=== PATIENT | female | born 1955 | race Caucasian/White ===

== ENCOUNTER 2022-01-17 17:05 | Inpatient (IN) | payer MEDICARE, MEDICAID ==
[~2022-01-17] VITALS: Ht 157.5 cm; Wt 40.0 kg
[2022-01-17] MEDS ORDERED: normal saline 1000ML IV soln IVB ONE ×2 (19:00→20:15)
[2022-01-17 19:32] LABS: BASOPHILS % (AUTO) 0.1 % (0-1); EOSINOPHILS % (AUTO) 0.2 % (0-6); HEMATOCRIT 29.6 % (35.0-45.0); HEMOGLOBIN 9.8 g/dl (12.0-16.0); LYMPHOCYTES # (AUTO) 0.7 X10'3 (1.1-4.8); LYMPHOCYTES % (AUTO) 7.9 % (21-51); MEAN CORPUSCULAR VOLUME 96.9 FL (78-98); MEAN PLATELET VOLUME 8.3 FL (7.4-10.4); MONOCYTES # (AUTO) 0.4 X10'3 (0-0.9); MONOCYTES % (AUTO) 4.3 % (2-12); NEUTROPHILS # (AUTO) 7.5 X10'3 (1.8-7.7); NEUTROPHILS % (AUTO) 87.5 % (42-75); PLATELET COUNT 253 X10'3 (140-440); RED BLOOD COUNT 3.05 X10'6 (4.20-5.60); RED CELL DISTRIBUTION WIDTH 13.1 % (11.5-14.5); WHITE BLOOD COUNT 8.6 X10'3 (4.5-11.0)
[2022-01-17 21:02] LABS: ALANINE AMINOTRANSFERASE 50 U/L (12-78); ALBUMIN/GLOBULIN RATIO 0.5 (1.1-1.5); ALKALINE PHOSPHATASE 100 IU/L (46-116); ASPARTATE AMINO TRANSFERASE 64 U/L (10-37); BILIRUBIN,TOTAL 0.2 MG/DL (0.1-1.0); BLOOD UREA NITROGEN 45 MG/DL (7-18); BUN/CREATININE RATIO 37.2 (6.6-38.0); CALCIUM 9.1 MG/DL (8.5-10.1); CREATININE 1.21 MG/DL (0.40-0.90); GLUCOSE 107 MG/DL (70-104); POTASSIUM 3.6 MMOL/L (3.5-5.1); TOTAL CARBON DIOXIDE 26.6 MMOL/L (24-32); eGFR 44 ML/MIN
[2022-01-17 21:10] LABS: ANION GAP 10 (8-16); CHLORIDE 125 MMOL/L (99-107)
[2022-01-17 21:11] LABS: SODIUM 162 MMOL/L (135-145)
[2022-01-17 21:38] LABS: CLARITY,URINE SLIGHTLY CLOUDY (Clear); COLOR,URINE YELLOW (Yellow); GLUCOSE, URINE NEGATIVE (Neg); KETONES,URINE NEGATIVE (Neg); LEUKOCYTE ESTERASE ,URINE NEGATIVE (Neg); NITRITES, URINE NEGATIVE (Neg); OCCULT BLOOD,URINE NEGATIVE (Neg); PROTEIN,URINE TRACE mg/dl (Neg); UROBILINOGEN,URINE 0.2 E.U/dL (0.2-1.0)
[2022-01-17 21:48] LABS: UA COLLECTION TYPE STRAIGHT CATH
[2022-01-17 21:51] LABS: BACTERIA,URINE FEW /HPF (Neg); MUCUS STRANDS FEW /LPF (Neg); RBC,URINE 0-2 /HPF (0-2); SQUAMOUS EPITHELIAL CELL,UR FEW /LPF (FEW); WBC,URINE NONE SEEN /HPF (0-4)
--- NOTE | 2022-01-17 22:04 | NUR ---
CHANGED DRESSINGS ON WOUNDS TO COCCYX AND HIPS.
[2022-01-17] MEDS ORDERED: acetaminophen 650mg rectal suppository RC PRN (22:05)
[2022-01-17] MEDS ORDERED: ondansetron/PF 4mg/2ml inj IV PRN (22:05)
[2022-01-17] MEDS: dextrose 5%-1/2 normal saline 1,000 ML IV SCH (23:51)
[2022-01-18 01:05] VITALS: BP 99/52
--- NOTE | 2022-01-18 01:05 | NUR ---
PATIENT ADMITTED TO ROOM 4017 FROM ER FOR HYPONATREMIA, AND DEMENTIA. PLACED COMFORTABLY IN BED. VITAL SIGNS TAKEN AND RECORDED.
--- NOTE | 2022-01-18 02:00 | NUR ---
PATIENT'S DRESSING TO WOUNDS THAT WERE DONE BY ER ARE PEELING OFF. DRESSING CHANGED WITH HYDROPHYLIC FOAM DRESSING TO EACH WOUND AND WOUND CARE CONSULT IS ORDERED.
[2022-01-18 06:00] VITALS: BP 91/60
--- NOTE | 2022-01-18 06:30 | NUR ---
Problems reprioritized. Patient report given, questions answered & plan of care reviewed with YENIFER CHAPPELL.
[2022-01-18 07:32] LABS: BASOPHILS % (AUTO) 0.1 % (0-1); EOSINOPHILS % (AUTO) 0.1 % (0-6); HEMATOCRIT 31.1 % (35.0-45.0); HEMOGLOBIN 10.4 g/dl (12.0-16.0); LYMPHOCYTES # (AUTO) 0.8 X10'3 (1.1-4.8); LYMPHOCYTES % (AUTO) 8.6 % (21-51); MEAN CORPUSCULAR HEMOGLOBIN 32.1 PG (27.0-31.0); MEAN CORPUSCULAR HGB CONC 33.3 g/dL (33.0-36.5); MEAN CORPUSCULAR VOLUME 96.4 FL (78-98); MEAN PLATELET VOLUME 8.3 FL (7.4-10.4); MONOCYTES # (AUTO) 0.4 X10'3 (0-0.9); MONOCYTES % (AUTO) 3.9 % (2-12); NEUTROPHILS # (AUTO) 8.1 X10'3 (1.8-7.7); NEUTROPHILS % (AUTO) 87.3 % (42-75); PLATELET COUNT 281 X10'3 (140-440); RED BLOOD COUNT 3.23 X10'6 (4.20-5.60); RED CELL DISTRIBUTION WIDTH 12.8 % (11.5-14.5); WHITE BLOOD COUNT 9.2 X10'3 (4.5-11.0)
[2022-01-18 07:49] LABS: ALANINE AMINOTRANSFERASE 56 U/L (12-78); ALBUMIN 1.8 G/DL (3.4-5.0); ALBUMIN/GLOBULIN RATIO 0.5 (1.1-1.5); ALKALINE PHOSPHATASE 89 IU/L (46-116); ANION GAP 7 (8-16); ASPARTATE AMINO TRANSFERASE 67 U/L (10-37); BILIRUBIN,TOTAL 0.2 MG/DL (0.1-1.0); BLOOD UREA NITROGEN 37 MG/DL (7-18); BUN/CREATININE RATIO 37.4 (6.6-38.0); CALCIUM 8.5 MG/DL (8.5-10.1); CHLORIDE 129 MMOL/L (99-107); CREATININE 0.99 MG/DL (0.40-0.90); GLUCOSE 129 MG/DL (70-104); TOTAL CARBON DIOXIDE 25.6 MMOL/L (24-32); TOTAL PROTEIN 5.3 G/DL (6.4-8.2); eGFR 56 ML/MIN
[2022-01-18 07:52] LABS: SODIUM 162 MMOL/L (135-145)
--- NOTE | 2022-01-18 07:54 | NUR ---
Noted pt with a low BMI of 16.1 using documented wt of 40 kg however wt is not scaled and no scaled wt hx in EMR. Unable to obtain information from pt as per EMR pt is nonverbal and A/O x 1. Pt with a low Guero of 11. Wound care has been consulted for multiple large pressure wounds to bottom with maggots, assessment pending at this time. Pt currently NPO though receiving D5 1/2 NS at 100 mL/hr providing 408 kcal/day. LBM 01/17. No nutrition intervention to be implemented d/t NPO and DNR with comfort care code status. Will continue to follow per LOS. Recommendations: 1) Bowel care per comfort care measures Addendum: 01/18/22 at [address] Amended: Links added.
[2022-01-18] MEDS ORDERED: POTASSIUM BICARB 20meq eff tab 20 MEQ TABLET.EFF PO PRN ×2 (08:25)
[2022-01-18] MEDS ORDERED: magnesium Cl slow-release 64mg tablet PO PRN (08:25)
[2022-01-18] MEDS ORDERED: magnesium 4gm in 100ml NS 100 ML IV PRN (08:25)
[2022-01-18] MEDS ORDERED: magnesium 2GM in 50ml NS 50 ML IV PRN (08:25)
[2022-01-18] MEDS: morphine 2 MG/ML inj. syringe IV PRN (09:59)
[2022-01-18] MEDS: dextrose 5%-1/2 normal saline 1,000 ML IV SCH ×2 (10:30→19:23)
--- NOTE | 2022-01-18 11:19 | NUR ---
Dr. Sandoval aware of the Na high 162 and K 2.9. I asked her if she wants any replacement and that patient is on comfort care . She said she would speak to the daughter first. I told Dr. Sandoval that daughter currently at bedside.
--- NOTE | 2022-01-18 12:18 | NUR ---
Paged ST for swallow eval of this patient
[2022-01-18] MEDS ORDERED: CLOP75TA15 PO (14:05)
[2022-01-18] MEDS ORDERED: BENA20TA83 PO (14:05)
[2022-01-18] MEDS ORDERED: QUET50TA PO (14:05)
[2022-01-18] MEDS ORDERED: DEXL30CA3 PO (14:05)
[2022-01-18 18:00] VITALS: BP 99/45
--- NOTE | 2022-01-18 18:30 | NUR ---
Patient in room [facility]TH[facility] 4017. I have received report from YENIFER CHAPPELL and had the opportunity to ask questions and assume patient care.
[2022-01-18] MEDS: potassium CL 10mEq/100ml bag 100 ML IV PRN ×3 (19:14→23:42)
[2022-01-18] MEDS: K and/or MAG REPLACEMENT MC SCH (19:28)
[2022-01-18 22:00] VITALS: BP 95/51
--- NOTE | 2022-01-19 00:15 | NUR ---
I went to call Ilya Valdez regarding the specialty bed of Advanta 2 P500 mattress for patient and it is already ordered per the inside account representative I talked to. The reference number is [id number].
[2022-01-19] MEDS: potassium CL 10mEq/100ml bag 100 ML IV PRN ×5 (01:50→21:56)
[2022-01-19] MEDS: dextrose 5%-1/2 normal saline 1,000 ML IV SCH ×2 (02:14→10:57)
[2022-01-19 05:45] LABS: POTASSIUM 2.9 MMOL/L (3.5-5.1)
[2022-01-19 06:00] VITALS: BP 101/42
--- NOTE | 2022-01-19 06:30 | NUR ---
Problems reprioritized. Patient report given, questions answered & plan of care reviewed with BRIA CHAPPELL.
--- NOTE | 2022-01-19 07:21 | NUR ---
Patient in room [facility]TH[facility] 4017. I have received report from TA Ruano and had the opportunity to ask questions and assume patient care.
[2022-01-19 07:41] LABS: BASOPHILS % (AUTO) 0.1 % (0-1); EOSINOPHILS # (AUTO) 0.1 X10'3 (0-0.9); EOSINOPHILS % (AUTO) 0.8 % (0-6); HEMOGLOBIN 9.9 g/dl (12.0-16.0); LYMPHOCYTES # (AUTO) 0.9 X10'3 (1.1-4.8); LYMPHOCYTES % (AUTO) 10.3 % (21-51); MEAN CORPUSCULAR HEMOGLOBIN 31.8 PG (27.0-31.0); MEAN CORPUSCULAR VOLUME 96.2 FL (78-98); MEAN PLATELET VOLUME 8.8 FL (7.4-10.4); MONOCYTES # (AUTO) 0.4 X10'3 (0-0.9); MONOCYTES % (AUTO) 4.6 % (2-12); NEUTROPHILS % (AUTO) 84.2 % (42-75); PLATELET COUNT 228 X10'3 (140-440); RED BLOOD COUNT 3.12 X10'6 (4.20-5.60); RED CELL DISTRIBUTION WIDTH 12.8 % (11.5-14.5); WHITE BLOOD COUNT 8.3 X10'3 (4.5-11.0)
[2022-01-19 07:53] LABS: ALANINE AMINOTRANSFERASE 45 U/L (12-78); ALBUMIN 1.6 G/DL (3.4-5.0); ALBUMIN/GLOBULIN RATIO 0.4 (1.1-1.5); ALKALINE PHOSPHATASE 78 IU/L (46-116); ANION GAP 5 (8-16); ASPARTATE AMINO TRANSFERASE 44 U/L (10-37); BILIRUBIN,TOTAL 0.3 MG/DL (0.1-1.0); BLOOD UREA NITROGEN 21 MG/DL (7-18); BUN/CREATININE RATIO 26.3 (6.6-38.0); CALCIUM 8.5 MG/DL (8.5-10.1); CHLORIDE 123 MMOL/L (99-107); GLUCOSE 96 MG/DL (70-104); POTASSIUM 3.2 MMOL/L (3.5-5.1); SODIUM 154 MMOL/L (135-145); TOTAL CARBON DIOXIDE 26.5 MMOL/L (24-32); TOTAL PROTEIN 5.2 G/DL (6.4-8.2); eGFR 72 ML/MIN
[2022-01-19] MEDS: K and/or MAG REPLACEMENT MC SCH ×2 (08:00→21:56)
--- NOTE | 2022-01-19 08:12 | NUR ---
PAGER ID: [phone] MESSAGE: Ella [id number] room 4017 is Comfort Care but still has labs, replacements, wound care and fluids ordered. Would you like me to continue to treat her? Thank you.
--- NOTE | 2022-01-19 08:13 | NUR ---
The patient still has labs, replacements, wound care, and fluids ordered but she is on Comfort Care. Paged the MD to see if we should continue the treatment.
[2022-01-19] MEDS: NYSTATIN CREAM - 30GM TUBE TP SCH (08:37)
[2022-01-19] MEDS: morphine 2 MG/ML inj. syringe IV PRN ×3 (08:38→17:11)
--- NOTE | 2022-01-19 08:39 | NUR ---
Administered Morphine at 0838 but scanner was not working. All medication rights reviewed.
[2022-01-19 10:00] VITALS: BP 69/29
[2022-01-19] MEDS ORDERED: dextrose 5%-1/2 normal saline 1,000 ML IV ONE (10:30)
--- NOTE | 2022-01-19 11:54 | NUR ---
Malnutrition consult: Pt unsure of wt loss though with decreased appetite per malnutrition risk screen with RN. Unable to obtain information from pt as pt A/O x 1 with dementia and nonverbal per EMR. Pt seen at bedside, no family members present. Pt visually cachectic most notably at bilat temples, shoulders, and clavicles as the rest of patient's body was covered with a blanket. Pt with severe decrease in muscle strength per EMR. Per physician notes pt's condition has been declining since 2017 and pt is having FTT and unable to eat. Pt likely with suboptimal PO intake [place]. Pt currently meets criteria for severe malnutrition. Pt seen by wound care, per report pt with unstageable PU to sacrum, bilat ischium, bilat trochanter, a DTI with right medial heel, stage I PU to right iliac crest, and an abrasion to left knee and right ear. Pt s/p BSS this morning with ST recs pureed food with thin liquids and needs a feeder d/t cognitive level, pending first meal since diet advancement. LBM 01/18. No nutrition intervention implemented in view of DNR with comfort care status. Will continue to follow per LOS. Recommendations: 1) Bowel care per comfort care measures Addendum: 01/19/22 at [address] Amended: Links added.
--- NOTE | 2022-01-19 12:10 | NUR ---
Patient has been moved to her new specialty bed Advanta 2 Frame with P500 mattress.
--- NOTE | 2022-01-19 16:58 | NUR ---
All wound care has been completed during today's shift as prescribed.
[2022-01-19 18:00] VITALS: BP 82/61
--- NOTE | 2022-01-19 18:00 | NUR ---
Patient in room [facility]TH[facility] 4017. I have received report from TA Jaramillo and had the opportunity to ask questions and assume patient care.
--- NOTE | 2022-01-19 18:40 | NUR ---
Problems reprioritized. Patient report given, questions answered & plan of care reviewed with IJEOMA Garcia.
[2022-01-19 22:00] VITALS: BP 99/49
[2022-01-20] MEDS: dextrose 5%-1/2 normal saline 1,000 ML IV SCH ×3 (03:56→18:14)
[2022-01-20 06:29] LABS: BASOPHILS % (AUTO) 0.3 % (0-1); EOSINOPHILS % (AUTO) 0.5 % (0-6); HEMATOCRIT 30.3 % (35.0-45.0); HEMOGLOBIN 10.1 g/dl (12.0-16.0); LYMPHOCYTES # (AUTO) 0.5 X10'3 (1.1-4.8); LYMPHOCYTES % (AUTO) 5.9 % (21-51); MEAN CORPUSCULAR HEMOGLOBIN 31.6 PG (27.0-31.0); MEAN CORPUSCULAR HGB CONC 33.3 g/dL (33.0-36.5); MEAN PLATELET VOLUME 9.3 FL (7.4-10.4); MONOCYTES # (AUTO) 0.2 X10'3 (0-0.9); MONOCYTES % (AUTO) 2.3 % (2-12); NEUTROPHILS # (AUTO) 8.2 X10'3 (1.8-7.7); PLATELET COUNT 228 X10'3 (140-440); RED BLOOD COUNT 3.19 X10'6 (4.20-5.60); RED CELL DISTRIBUTION WIDTH 12.5 % (11.5-14.5)
--- NOTE | 2022-01-20 06:29 | NUR ---
Problems reprioritized. Patient report given, questions answered & plan of care reviewed with TA Jaramillo.
--- NOTE | 2022-01-20 06:36 | NUR ---
Patient in room [facility]TH[facility] 4017. I have received report from IJEOMA Garcia and had the opportunity to ask questions and assume patient care.
--- NOTE | 2022-01-20 06:48 | NUR ---
I have reviewed and agree with this assmt done by Radha RAPHAEL
[2022-01-20 06:58] LABS: ALANINE AMINOTRANSFERASE 41 U/L (12-78); ALBUMIN 1.6 G/DL (3.4-5.0); ALBUMIN/GLOBULIN RATIO 0.5 (1.1-1.5); ALKALINE PHOSPHATASE 96 IU/L (46-116); ANION GAP 4 (8-16); ASPARTATE AMINO TRANSFERASE 39 U/L (10-37); BILIRUBIN,TOTAL 0.4 MG/DL (0.1-1.0); BLOOD UREA NITROGEN 16 MG/DL (7-18); BUN/CREATININE RATIO 22.2 (6.6-38.0); CALCIUM 8.3 MG/DL (8.5-10.1); CHLORIDE 117 MMOL/L (99-107); CREATININE 0.72 MG/DL (0.40-0.90); GLUCOSE 92 MG/DL (70-104); POTASSIUM 3.3 MMOL/L (3.5-5.1); SODIUM 147 MMOL/L (135-145); TOTAL PROTEIN 4.9 G/DL (6.4-8.2); eGFR 81 ML/MIN
[2022-01-20] MEDS: K and/or MAG REPLACEMENT MC SCH ×2 (08:00→20:00)
[2022-01-20] MEDS: NYSTATIN CREAM - 30GM TUBE TP SCH (09:16)
[2022-01-20 10:00] VITALS: BP 120/58
[2022-01-20] MEDS: cephalexin 500mg capsule PO SCH ×2 (14:00→20:00)
--- NOTE | 2022-01-20 16:58 | NUR ---
All wound care has been provided during today's shift as prescribed.
--- NOTE | 2022-01-20 18:00 | NUR ---
Patient in room [facility]TH[facility] 4017. I have received report from TA Jaramillo and had the opportunity to ask questions and assume patient care.
--- NOTE | 2022-01-20 18:34 | NUR ---
Problems reprioritized. Patient report given, questions answered & plan of care reviewed with IJEOMA Garcia.
--- NOTE | 2022-01-20 20:44 | NUR ---
Patient is on comfort care. Informed patient of her potassium level of 3.3. Patient refused her medications this evening.
[2022-01-20] MEDS ORDERED: QUEtiapine 25mg tablet PO SCH (21:00)
[2022-01-20] MEDS: morphine 2 MG/ML inj. syringe IV PRN (21:18)
[2022-01-20 22:00] VITALS: BP 75/29
[2022-01-21] MEDS: cephalexin 500mg capsule PO SCH ×3 (02:00→13:04)
[2022-01-21] MEDS: dextrose 5%-1/2 normal saline 1,000 ML IV SCH ×2 (02:15→14:31)
[2022-01-21] MEDS: morphine 2 MG/ML inj. syringe IV PRN ×3 (04:22→13:04)
--- NOTE | 2022-01-21 05:38 | NUR ---
AGREE WITH CHEMICAL COMPOUNDER PHYSICAL ASSESSMENT CHARTED
[2022-01-21 06:00] VITALS: BP 124/76
[2022-01-21 06:11] LABS: BASOPHILS % (AUTO) 0.1 % (0-1); EOSINOPHILS # (AUTO) 0.1 X10'3 (0-0.9); EOSINOPHILS % (AUTO) 1.2 % (0-6); HEMATOCRIT 27.6 % (35.0-45.0); HEMOGLOBIN 9.3 g/dl (12.0-16.0); LYMPHOCYTES # (AUTO) 0.5 X10'3 (1.1-4.8); LYMPHOCYTES % (AUTO) 7.2 % (21-51); MEAN CORPUSCULAR HEMOGLOBIN 31.8 PG (27.0-31.0); MEAN CORPUSCULAR HGB CONC 33.8 g/dL (33.0-36.5); MEAN CORPUSCULAR VOLUME 94.2 FL (78-98); MEAN PLATELET VOLUME 9.3 FL (7.4-10.4); MONOCYTES # (AUTO) 0.3 X10'3 (0-0.9); MONOCYTES % (AUTO) 3.9 % (2-12); NEUTROPHILS # (AUTO) 6.3 X10'3 (1.8-7.7); NEUTROPHILS % (AUTO) 87.6 % (42-75); PLATELET COUNT 193 X10'3 (140-440); RED BLOOD COUNT 2.93 X10'6 (4.20-5.60); RED CELL DISTRIBUTION WIDTH 12.6 % (11.5-14.5); WHITE BLOOD COUNT 7.1 X10'3 (4.5-11.0)
--- NOTE | 2022-01-21 06:21 | NUR ---
Problems reprioritized. Patient report given, questions answered & plan of care reviewed with TA Parks.
--- NOTE | 2022-01-21 06:26 | NUR ---
Patient in room [facility]TH[facility] 4017. I have received report from IVÁN and had the opportunity to ask questions and assume patient care.
[2022-01-21 06:28] LABS: ALANINE AMINOTRANSFERASE 61 U/L (12-78); ALBUMIN 1.3 G/DL (3.4-5.0); ALBUMIN/GLOBULIN RATIO 0.4 (1.1-1.5); ALKALINE PHOSPHATASE 129 IU/L (46-116); ANION GAP 3 (8-16); ASPARTATE AMINO TRANSFERASE 56 U/L (10-37); BILIRUBIN,TOTAL 0.4 MG/DL (0.1-1.0); BLOOD UREA NITROGEN 10 MG/DL (7-18); BUN/CREATININE RATIO 17.9 (6.6-38.0); CALCIUM 7.9 MG/DL (8.5-10.1); CHLORIDE 112 MMOL/L (99-107); CREATININE 0.56 MG/DL (0.40-0.90); GLUCOSE 108 MG/DL (70-104); SODIUM 142 MMOL/L (135-145); TOTAL CARBON DIOXIDE 26.6 MMOL/L (24-32); TOTAL PROTEIN 4.6 G/DL (6.4-8.2); eGFR > 90 ML/MIN
[2022-01-21 06:59] LABS: POTASSIUM 2.8 MMOL/L (3.5-5.1)
[2022-01-21] MEDS ORDERED: potassium Cl 20 mEq SR tablet PO PRN (07:30)
--- NOTE | 2022-01-21 07:48 | NUR ---
PAGED DR MORIN ABOUT K OF 2.8. PAGE SAID WAS SENT
[2022-01-21] MEDS: K and/or MAG REPLACEMENT MC SCH (08:00)
[2022-01-21] MEDS ORDERED: pantoprazole 40mg Tablet.DR PO SCH (08:00)
[2022-01-21] MEDS: potassium Cl 20 mEq SR tablet PO PRN ×2 (08:26→12:08)
[2022-01-21] MEDS: NYSTATIN CREAM - 30GM TUBE TP SCH (08:28)
[2022-01-21 10:00] VITALS: BP 78/40
--- NOTE | 2022-01-21 10:00 | NUR ---
dr blood was notified about pt low BP, she wants to monitor it.
--- NOTE | 2022-01-21 11:35 | NUR ---
TALKED TO DR MORIN ABOUT GIVING PT ROXANOL FOR COMFORT CARE MEASURES BECAUSE PT SEEMS TO NOT BE COMFORTABLE, GRIMACING, GRABBING, SHE STATED SHE NEEDS TO TALK TO FAMILY TO SEE IF THEY WANT TO PUT THE PT ON HOSPICE. TO KEEP SAME MEDS THAT ARE BEING GIVEN
--- NOTE | 2022-01-21 13:21 | NUR ---
Page Sent promotional table spacer PAGER ID: [phone] MESSAGE: 16 AYDIN BRICE FAMILY IS HERE AND WILL BE FOR THE NEXT 30 MINUTES. THEY REALLY WANT TO TALK TO YOU. THANKS ELIZABETH [phone]
--- NOTE | 2022-01-21 14:28 | NUR ---
pt is comfort care/hospice. family only wants pt to be turned every 2 hrs and nothing to extensive due to her pain. they refused having the pictures taken and just want her to have bandages that fall off replaced. no extra movement due to her grimacing when doing so. just want her to be very comfortable.
[2022-01-21] MEDS ORDERED: morphine ORAL 5MG/0.25 ML (Conc. morphine) oral syringe PO PRN (16:15)
[2022-01-21] MEDS: scopolamine 1mg/72 hr patch TD SCH (18:27)
[2022-01-21] MEDS: morphine 10 MG/5 ML UD oral solution PO PRN (18:29)
--- NOTE | 2022-01-21 18:34 | NUR ---
DR MORIN PUT PT ON COMFORT CARE/ PALLIATIVE AND TOOK OFF K ORDERS.
--- NOTE | 2022-01-21 18:40 | NUR ---
Problems reprioritized. Patient report given, questions answered & plan of care reviewed with IVÁN RAPHAEL.
[2022-01-21] MEDS: LORazepam 2 mg/ml vial IV PRN (19:28)
[2022-01-21 22:00] VITALS: BP 79/29
--- NOTE | 2022-01-21 23:22 | NUR ---
Patient in room [facility]TH[facility] 4017. I have received report from TA Parks and had the opportunity to ask questions and assume patient care. Addendum: 01/21/22 at 2324 by Radha Ruelas LVN *Correction*received report at 1800.
--- NOTE | 2022-01-22 02:46 | NUR ---
AGREE WITH GYPSUM BLOCK SETTER PHYSICAL ASSESSMENT CHARTED
[2022-01-22 06:08] LABS: BASOPHILS % (AUTO) 0.3 % (0-1); EOSINOPHILS % (AUTO) 0.4 % (0-6); HEMATOCRIT 27.3 % (35.0-45.0); HEMOGLOBIN 9.2 g/dl (12.0-16.0); LYMPHOCYTES # (AUTO) 0.5 X10'3 (1.1-4.8); LYMPHOCYTES % (AUTO) 6.8 % (21-51); MEAN CORPUSCULAR HEMOGLOBIN 31.4 PG (27.0-31.0); MEAN CORPUSCULAR HGB CONC 33.6 g/dL (33.0-36.5); MEAN CORPUSCULAR VOLUME 93.4 FL (78-98); MEAN PLATELET VOLUME 9.4 FL (7.4-10.4); MONOCYTES # (AUTO) 0.3 X10'3 (0-0.9); MONOCYTES % (AUTO) 4.5 % (2-12); NEUTROPHILS # (AUTO) 6.5 X10'3 (1.8-7.7); PLATELET COUNT 209 X10'3 (140-440); RED BLOOD COUNT 2.92 X10'6 (4.20-5.60); RED CELL DISTRIBUTION WIDTH 12.6 % (11.5-14.5); WHITE BLOOD COUNT 7.4 X10'3 (4.5-11.0)
[2022-01-22 06:21] LABS: ALANINE AMINOTRANSFERASE 51 U/L (12-78); ALBUMIN 1.3 G/DL (3.4-5.0); ALBUMIN/GLOBULIN RATIO 0.4 (1.1-1.5); ALKALINE PHOSPHATASE 131 IU/L (46-116); ANION GAP 6 (8-16); ASPARTATE AMINO TRANSFERASE 33 U/L (10-37); BILIRUBIN,TOTAL 0.3 MG/DL (0.1-1.0); BLOOD UREA NITROGEN 8 MG/DL (7-18); BUN/CREATININE RATIO 15.7 (6.6-38.0); CHLORIDE 111 MMOL/L (99-107); CREATININE 0.51 MG/DL (0.40-0.90); GLUCOSE 69 MG/DL (70-104); POTASSIUM 3.1 MMOL/L (3.5-5.1); SODIUM 142 MMOL/L (135-145); TOTAL CARBON DIOXIDE 25.4 MMOL/L (24-32); TOTAL PROTEIN 4.6 G/DL (6.4-8.2); eGFR > 90 ML/MIN
--- NOTE | 2022-01-22 06:35 | NUR ---
Patient in room [facility]TH[facility] 4017. I have received report from Radha. TA and had the opportunity to ask questions and assume patient care.
--- NOTE | 2022-01-22 06:36 | NUR ---
Problems reprioritized. Patient report given, questions answered & plan of care reviewed with TA Dempsey.
[2022-01-22 10:00] VITALS: BP 61/27
[2022-01-22] MEDS: morphine 10 MG/5 ML UD oral solution PO PRN (12:45)
[2022-01-22] MEDS: LORazepam 2 mg/ml vial IV PRN ×2 (13:04→14:45)
[2022-01-22] MEDS ORDERED: morphine 2 MG/ML inj. syringe IV PRN ×2 (14:50)
--- NOTE | 2022-01-22 18:19 | NUR ---
Problems reprioritized. Patient report given, questions answered & plan of care reviewed with TA Soares.
[2022-01-22 22:00] VITALS: BP 70/36
--- NOTE | 2022-01-23 06:28 | NUR ---
Problems reprioritized. Patient report given, questions answered & plan of care reviewed with TA RALPH.
--- NOTE | 2022-01-23 06:51 | NUR ---
Patient in room ORTHO 4017A. I have received report from TA SALCEDO and had the opportunity to ask questions and assume patient care.
[2022-01-23] MEDS: morphine 10 MG/5 ML UD oral solution PO PRN (11:44)
--- NOTE | 2022-01-23 18:19 | NUR ---
Problems reprioritized. Patient report given, questions answered & plan of care reviewed with TA SALCEDO.
--- NOTE | 2022-01-23 18:36 | NUR ---
A DEPUTY CAME TO TALK TO PATIENT, PATIENT WAS ASLEEP AND DID NOT TALK TO DEPUTY. DEPUTY CIELO #[id number] PLS CALL 24HR NON-EMERGENCY NUMBER [phone] IF PATIENT WAKES UP AND WANTS TO TALK TO HIM, PAPER WITH NUMBER LEFT AT BEDSIDE
[2022-01-23 22:00] VITALS: BP 81/35
[2022-01-24] MEDS: morphine 10mg/0.5ml (conc. morphine) oral syringe PO PRN ×2 (02:16→11:36)
--- NOTE | 2022-01-24 06:21 | NUR ---
Problems reprioritized. Patient report given, questions answered & plan of care reviewed with TA RALPH.
--- NOTE | 2022-01-24 06:44 | NUR ---
Patient in room [facility]TH[facility] 4017. I have received report from TA SALCEDO and had the opportunity to ask questions and assume patient care.
--- NOTE | 2022-01-24 09:00 | NUR ---
Reassessment: Pt continues eating poorly, documented with 0-25% PO intake of pureed diet with thin liquids. Per EMR pt receiving total assistance with meals. No nutrition intervention to be implemented at this time as pt remains palliative/comfort care. Will continue to follow per LOS. Recommendations: 1) Bowel care per comfort care measures Addendum: 01/24/22 at [address] Amended: Links added.
[2022-01-24 10:00] VITALS: BP 88/49
[2022-01-24] MEDS: LORazepam 2 mg/ml vial IV PRN (13:48)
[2022-01-24] MEDS: scopolamine 1mg/72 hr patch TD SCH (17:22)
--- NOTE | 2022-01-24 19:10 | NUR ---
Problems reprioritized. Patient report given, questions answered & plan of care reviewed with RASHAD SOLORZANO RN.
--- NOTE | 2022-01-24 19:11 | NUR ---
Patient in room [facility]TH[facility] 4017. I have received report from RAMO CHAPPELL and had the opportunity to ask questions and assume patient care.
[2022-01-24 22:00] VITALS: BP 68/33
[2022-01-25] MEDS: morphine 10mg/0.5ml (conc. morphine) oral syringe PO PRN ×2 (05:44→12:14)
[2022-01-25] MEDS: LORazepam 2 mg/ml vial IV PRN ×2 (06:30→16:21)
--- NOTE | 2022-01-25 06:30 | NUR ---
Problems reprioritized. Patient report given, questions answered & plan of care reviewed with MARTINE CHAPPELL.
--- NOTE | 2022-01-25 06:56 | NUR ---
Patient in room ORTH[facility] 4017. I have received report from Celia Yang RN and had the opportunity to ask questions and assume patient care.
[2022-01-25 10:00] VITALS: BP_SYST 111; BP_SYST 93; BP_DIAS 34; BP_DIAS 72
--- NOTE | 2022-01-25 16:00 | NUR ---
Patient report called to Lokesh at [facility], All questions answered. Patients IV dc'd cannnula intact. Assisted [facility] crew in moving patient to [facility]. Patient has a goetz catheter in place and was emptied prior to discharge. Patients daughter was at bedside. Patients family took patients clothes home with them.
== END 2022-01-25 16:50 | DRG 640 ==
LOC: ER 17:06 → ED HOLD 22:05 → ORTHO 4S 01-18 01:00
PROVIDERS: ADMIT Internal Medicine; ATTEND Internal Medicine
DX: E86.0 Dehydration (principal); E43 Unspecified severe protein-calorie malnutrition; N17.0 Acute kidney failure with tubular necrosis; Z68.1 Body mass index [BMI] 19.9 or less, adult; R64 Cachexia; N17.9 Acute kidney failure, unspecified; E87.0 Hyperosmolality and hypernatremia; L89.159 Pressure ulcer of sacral region, unspecified stage; F03.90 Unspecified dementia, unspecified severity, without behavioral disturbance, psychotic disturbance, mood disturbance, and anxiety; L89.329 Pressure ulcer of left buttock, unspecified stage; L89.319 Pressure ulcer of right buttock, unspecified stage; E87.6 Hypokalemia; Z20.822 Contact with and (suspected) exposure to COVID-19; R62.7 Adult failure to thrive; Z66 Do not resuscitate; Z51.5 Encounter for palliative care; Z87.891 Personal history of nicotine dependence; Z74.01 Bed confinement status
CPT/HCPCS: 36415; 70450; 71045; 80053; 81001; 83605; 84145; 85025; 87040; 87081; 92508; 92616; 99285; A4314; A4353; A5200; A6209; A6212; A6213; A6253; A6260; A6449; G0378; J2060; J2270; J3480; J7030; J7040; J7042